=== PATIENT | male | born 1945 | race Caucasian/White ===

== ENCOUNTER 2016-06-15 07:59 | Outpatient (CLI) | payer OTHER | END 2016-06-15 08:00 | disposition home or self-care (01) | DX: E78.2 Mixed hyperlipidemia (principal); E29.1 Testicular hypofunction; Z79.899 Other long term (current) drug therapy; M79.1 Myalgia ==

== ENCOUNTER 2016-10-20 08:13 | Outpatient (CLI) | payer MEDICARE, OTHER ==
[2016-10-20 11:24] LABS: EOSINOPHILS # (AUTO) 0.1 10^3/uL (0.0-0.7); HCT - HEMATOCRIT 42.9 % (42.0-52.0); LYMPHOCYTES # (AUTO) 1.5 10^3/uL (1.5-3.5); MONOCYTES # (AUTO) 0.4 10^3/uL (0.0-1.0); NEUTROPHILS # (AUTO) 2.3 10^3/uL (1.5-6.6); NUCLEATED RED BLOOD CELLS AUTO 0.1 /100WBC; UNCORRECTED WHITE BLOOD COUNT 4.3 x10^3/uL; WHITE BLOOD COUNT 4.3 x10^3/uL (4.8-10.8)
[2016-10-20 11:26] LABS: BASOPHILS % (AUTO) 0.6 %; EOSINOPHILS % (AUTO) 2.6 %; HGB - HEMOGLOBIN 14.3 g/dL (14.0-18.0); LYMPHOCYTES % (AUTO) 34.6 %; MEAN CORPUSCULAR HGB CONC 33.4 g/dL (32.0-36.0); MEAN CORPUSCULAR VOLUME 89.8 fL (80.0-94.0); MEAN PLATELET VOLUME 7.9 fL (7.4-11.4); MONOCYTES % (AUTO) 8.7 %; NEUTROPHILS % (AUTO) 53.5 %; RED BLOOD COUNT 4.78 10^6/uL (4.70-6.10); RED CELL DISTRIBUTION WIDTH 14.4 % (12.0-15.0)
[2016-10-20 12:04] LABS: ALBUMIN/GLOBULIN RATIO 1.5 (1.0-2.2); BILIRUBIN,TOTAL 1.8 mg/dL (0.2-1.0); BUN - BLOOD UREA NITROGEN 24 mg/dL (6-20); CALCIUM 9.1 mg/dL (8.5-10.3); CARBON DIOXIDE - CO2 30 mmol/L (21-32); CHLORIDE 103 mmol/L (101-111); CHOL/HDL RATIO 4.9 (<5.0); CHOLESTEROL 196 mg/dL; CREATININE 1.1 mg/dL (0.6-1.2); GFR - MDRD 67 (>89); GLUCOSE 95 mg/dL (70-100); HDL CHOLESTEROL 40 mg/dL; LDL/HDL RATIO 3.1 (<3.6); SODIUM 138 mmol/L (135-145); TOTAL PROTEIN 6.9 g/dL (6.7-8.2); TRIGLYCERIDES 162 mg/dL; URIC ACID 5.1 mg/dL (2.6-7.2); VLDL CHOLESTEROL 32 mg/dL
== END 2016-10-20 08:14 | disposition home or self-care (01) ==
LOC: LAB.F 08:13
PROVIDERS: ATTEND Internal Medicine
DX: I63.9 Cerebral infarction, unspecified (principal); Z79.899 Other long term (current) drug therapy
CPT/HCPCS: 36415; 80053; 80061; 84443; 84550; 85025

== ENCOUNTER 2017-10-17 08:00 | Outpatient (CLI) | payer MEDICARE ==
[2017-10-17 12:54] LABS: BILIRUBIN,URINE NEGATIVE (NEGATIVE); GLUCOSE, URINE (UA) NEGATIVE (NEGATIVE); KETONES,URINE (UA) NEGATIVE (NEGATIVE); LEUKOCYTE ESTERASE, URINE NEGATIVE (NEGATIVE); NITRITE,URINE NEGATIVE (NEGATIVE); OCCULT BLOOD,URINE NEGATIVE (NEGATIVE); PROTEIN,URINE NEGATIVE (NEGATIVE); UROBILINOGEN,URINE 0.2 (NORMAL) E.U./dL (NORMAL)
[2017-10-17 12:57] LABS: CLARITY,URINE CLEAR (CLEAR)
[2017-10-17 12:59] LABS: BASOPHILS % (AUTO) 0.7 %; EOSINOPHILS % (AUTO) 0.8 %; HGB - HEMOGLOBIN 14.8 g/dL (14.0-18.0); LYMPHOCYTES # (AUTO) 1.1 10^3/uL (1.5-3.5); LYMPHOCYTES % (AUTO) 23.8 %; MEAN CORPUSCULAR HEMOGLOBIN 30.3 pg (27.0-31.0); MEAN CORPUSCULAR VOLUME 89.1 fL (80.0-94.0); MEAN PLATELET VOLUME 7.9 fL (7.4-11.4); MONOCYTES # (AUTO) 0.3 10^3/uL (0.0-1.0); MONOCYTES % (AUTO) 7.4 %; NEUTROPHILS # (AUTO) 3.1 10^3/uL (1.5-6.6); NEUTROPHILS % (AUTO) 67.3 %; PLT - PLATELET COUNT 195 10^3/uL (130-450); RED BLOOD COUNT 4.87 10^6/uL (4.70-6.10); RED CELL DISTRIBUTION WIDTH 14.5 % (12.0-15.0); WHITE BLOOD COUNT 4.6 x10^3/uL (4.8-10.8)
[2017-10-17 13:10] LABS: ALBUMIN 4.2 g/dL (3.2-5.5); ALBUMIN/GLOBULIN RATIO 1.4 (1.0-2.2); BILIRUBIN,TOTAL 1.4 mg/dL (0.2-1.0); CALCIUM 8.9 mg/dL (8.5-10.3); CREATININE 0.9 mg/dL (0.6-1.2); TOTAL PROTEIN 7.2 g/dL (6.7-8.2)
[2017-10-17 13:24] LABS: PT - PROTHROMBIN TIME 11.1 secs (9.9-12.6)
== END 2017-10-17 08:01 | disposition home or self-care (01) ==
LOC: LAB.R 08:00
PROVIDERS: ATTEND Internal Medicine
DX: Z01.812 Encounter for preprocedural laboratory examination (principal); I63.9 Cerebral infarction, unspecified; M17.9 Osteoarthritis of knee, unspecified; E78.5 Hyperlipidemia, unspecified
CPT/HCPCS: 80053; 81001; 81003; 85025; 85610; 87086

== ENCOUNTER 2019-08-26 09:12 | Emergency (ER) | payer MEDICARE, OTHER ==
--- NOTE | 2019-08-26 09:14 | ED Physician Documentation ---
PD HPI CHEST PAIN - Stated complaint Stated Complaint: CHEST PX - History obtained from History obtained from: Patient - History of Present Illness Timing - onset: How many hours ago (12), Last night, Yesterday (late dinner time.) Timing - onset during: Eating (soon after eating dinner heavy with garlic) Timing - duration: Hours (12) Timing - details: Abrupt onset, Still present, Waxing and waning Quality: Aching, Pain Location: Substernal, Epigastric Radiation: Back Improved by: No: ASA Worsened by: Palpation. No: Inspiration, Movement Associated symptoms: Nausea, General Weakness. No: Shortness of air, Vomiting, Feeling faint / dizzy, Palpitations Similar symptoms before: Has not had sx before Recently seen: Not recently seen Review of Systems Constitutional: denies: Fever, Chills Nose: denies: Rhinorrhea / runny nose, Congestion Throat: denies: Sore throat Respiratory: denies: Cough GI: reports: Nausea, Bloody / black stool (He is noticed dark-colored stool but still firm for the last 2 to 3 days and then a bit watery to loose dark stool without any vincent blood this morning.). denies: Vomiting, Diarrhea : denies: Dysuria, Frequency Musculoskeletal: denies: Extremity swelling Neurologic: reports: Generalized weakness. denies: Focal weakness, Numbness, Near syncope Endocrine: denies: Easy bruising / bleeding Immunocompromised: denies: Immunocompromised PD PAST MEDICAL HISTORY - Past Medical History Cardiovascular: Hypertension, High cholesterol Neuro: None Endocrine/Autoimmune: None GI: None Musculoskeletal: Gout - Past Surgical History Past Surgical History: Yes General: Other - Present Medications Home Medications: Ambulatory Orders Medication Instructions Recorded Confirmed Allopurinol [Zyloprim] 300 mg PO DAILY 11/01/15 11/01/15 Aspirin [Aspir-Low] 81 mg PO BIDAC 11/01/15 11/01/15 Rosuvastatin Calcium [Crestor] 10 mg PO Q48H 11/01/15 11/01/15 lisinopriL [Lisinopril] 5 mg PO DAILY 11/01/15 11/01/15 Famotidine 20 mg PO DAILY #30 tablet 08/26/19 Lidocaine Viscous 2% [Xylocaine 5 ml PO Q4H PRN #100 ml 08/26/19 Viscous 2%] Sucralfate 1 gm PO QID #20 tablet 08/26/19 - Allergies Allergies/Adverse Reactions: Allergies Allergy/AdvReac Type Severity Reaction Status Date / Time Penicillins Allergy Hives Verified 08/26/19 09:24 - Living Situation Living Situation: reports: With family Living Arrangement: reports: At home - Social History Does the pt smoke?: No Smoking Status: Never smoker Does the pt have substance abuse?: No - Family History Family history: reports: CAD - Immunizations Immunizations are current?: No Immunizations: TDAP >10years/unknown PD ED PE NORMAL - Vitals Vital signs reviewed: Yes - General General: Alert and oriented X 3, No acute distress, Well developed/nourished - HEENT HEENT: Moist mucous membranes, Pharynx benign - Neck Neck: Supple, no meningeal sign, No adenopathy - Cardiac Cardiac: RRR - Respiratory Respiratory: Clear bilaterally - Abdomen Abdomen: Normal bowel sounds, Soft, Non distended, No organomegaly, Other (Some tenderness in the epigastric area without any guarding or rebound.) - Rectal Rectal: Deferred (since he was able to provide stool sample in bathroom) - Derm Derm: Normal color, Warm and dry - Extremities Extremities: No deformity, No tenderness to palpate, No edema, No calf tenderness / cord - Neuro Neuro: Alert and oriented X 3, No motor deficit, Normal speech Results - Vitals Vitals: Vital Signs - 24 hr 08/26/19 08/26/19 08/26/19 09:19 11:04 11:39 Temperature 36.8 C Heart Rate 65 66 73 Respiratory 18 16 16 Rate Blood Pressure 157/98 H 116/86 H 115/78 O2 Saturation 100 98 97 Oxygen O2 Source Room air - EKG (time done) 09:16 Rate: Rate (enter#) (57) Rhythm: NSR [place]: Normal Intervals: Normal IA, RBBB QRS: Normal Ischemia: Normal ST segments, Non specific changes. No: ST elevation c/w ischemia Compare to prior EKG: Old EKG unavailable - Labs Labs: Laboratory Tests 08/26/19 08/26/19 08/26/19 09:30 09:30 09:30 WBC 7.5 RBC 4.04 L Hgb 11.7 L Hct 36.8 L MCV 91.1 MCH 29.0 MCHC 31.8 L RDW 13.1 Plt Count 175 MPV 9.6 Neut # (Auto) 5.5 Lymph # (Auto) 1.4 L [place] # (Auto) 0.4 Eos # (Auto) 0.0 Baso # (Auto) 0.1 Absolute Nucleated RBC 0.00 Nucleated RBC % 0.0 Sodium 138 Potassium 4.3 Chloride 104 Carbon Dioxide 27 Anion Gap 7.0 BUN 69 H Creatinine 1.0 Estimated GFR (MDRD) 74 L Glucose 116 H Calcium 8.6 Magnesium Total Bilirubin 1.0 AST 15 ALT 15 Alkaline Phosphatase 38 L Troponin I High Sens < 2.3 L Total Protein 6.6 L Albumin 3.8 Globulin 2.8 Albumin/Globulin Ratio 1.4 Lipase 30 Stl Occult Blood (IFOB) Blood Type Antibody Screen 08/26/19 08/26/19 08/26/19 09:30 09:30 10:30 WBC RBC Hgb Hct MCV MCH MCHC RDW Plt Count MPV Neut # (Auto) Lymph # (Auto) [place] # (Auto) Eos # (Auto) Baso # (Auto) Absolute Nucleated RBC Nucleated RBC % Sodium Potassium Chloride Carbon Dioxide Anion Gap BUN Creatinine Estimated GFR (MDRD) Glucose Calcium Magnesium 2.1 Total Bilirubin AST ALT Alkaline Phosphatase Troponin I High Sens Total Protein Albumin Globulin Albumin/Globulin Ratio Lipase Stl Occult Blood (IFOB) POSITIVE A Blood Type A POSITIVE Antibody Screen NEGATIVE - Rads (name of study) chest xray Radiology: Prelim report reviewed (normal chest xray), See rad report PD MEDICAL DECISION MAKING - ED course Complexity details: reviewed results (EKG showed a right bundle branch block which she states is a known finding in the past. Troponin is negative. Chest x-ray is clear. He was having dark stool and he gave a stool sample which was guaiac positive. He did have improvement in his pain with the GI cocktail. His blood pressure and blood count are normal so seems a stable upper GI bleed likely related to gastritis from NSAIDs.), re-evaluated patient (feeling improved with GI cocktail. ), considered differential, d/w patient Departure - Departure Disposition: 01 Home, Self Care Clinical Impression: Upper GI bleeding Chest pain Qualifiers: Chest pain type: precordial pain Qualified Code(s): R07.2 - Precordial pain Acute gastritis Qualifiers: Gastritis type: other gastritis Gastritis bleeding: with bleeding Qualified Code(s): K29.01 - Acute gastritis with bleeding Condition: Stable Record reviewed to determine appropriate education?: Yes Instructions: ED Bleed UGI Stable, ED PUD Vs Gastritis Follow-Up: Rossy Melgar, YANET [Primary Care Provider] - Prescriptions: Famotidine 20 mg PO DAILY #30 tablet Lidocaine Viscous 2% [Xylocaine Viscous 2%] 5 ml PO Q4H PRN #100 ml PRN Reason: Pain Sucralfate 1 gm PO QID #20 tablet Comments: Your stool did test positive for blood. Your symptoms would suggest a gastritis or ulcer but your blood count and blood pressure and such are good so we can treated as a bleeding gastritis with acid reducing medicine and medication to coat and numb the stomach. Avoid any NSAIDs for several weeks at least. Use Tylenol 650 mg 4 times a day for your back pain instead as this will not irritate your stomach. Bureau food for the next several days at least. Recheck if the pain is not improving well over the next several days and resolved over 3 to 5 days. The dark stools should phase out once the bleeding stops and I would expect that to resolve over 3 to 5 days as well. Follow-up with your primary care if the pain or dark stool persists beyond that timeframe. Return if significant increase in the amount of dark stool or any vincent blood shows. Your EKG chest x-ray and blood tests otherwise are normal without showing any signs of heart attack or heart injury. You do have a right bundle branch block still on your EKG and that will be a consistent finding for you. It does not represent significant heart disease. Discharge Date/Time: 08/26/19 11:40
[2019-08-26 09:39] LABS: BASOPHILS # (AUTO) 0.1 10^3/uL (0.0-0.1); BASOPHILS % (AUTO) 1.5 %; EOSINOPHILS % (AUTO) 0.4 %; HGB - HEMOGLOBIN 11.7 g/dL (14.0-18.0); LYMPHOCYTES # (AUTO) 1.4 10^3/uL (1.5-3.5); LYMPHOCYTES % (AUTO) 19.2 %; MEAN CORPUSCULAR HGB CONC 31.8 g/dL (32.0-36.0); MEAN CORPUSCULAR VOLUME 91.1 fL (80.0-94.0); MEAN PLATELET VOLUME 9.6 fL (7.4-11.4); MONOCYTES # (AUTO) 0.4 10^3/uL (0.0-1.0); MONOCYTES % (AUTO) 5.6 %; NEUTROPHILS # (AUTO) 5.5 10^3/uL (1.5-6.6); NEUTROPHILS % (AUTO) 72.6 %; PLT - PLATELET COUNT 175 10^3/uL (130-450); RED BLOOD COUNT 4.04 10^6/uL (4.70-6.10); RED CELL DISTRIBUTION WIDTH 13.1 % (12.0-15.0); WHITE BLOOD COUNT 7.5 x10^3/uL (4.8-10.8)
[2019-08-26 09:53] LABS: ALBUMIN 3.8 g/dL (3.2-5.5); ALBUMIN/GLOBULIN RATIO 1.4 (1.0-2.2); CALCIUM 8.6 mg/dL (8.5-10.3); TOTAL PROTEIN 6.6 g/dL (6.7-8.2)
[2019-08-26] MEDS ORDERED: MAG HYDROX/AL HYDROX/SIMETH 30 ML UDC PO STA (09:53)
[2019-08-26] MEDS ORDERED: FAMOTIDINE 20 MG/2 ML VIAL IVP STA (09:53)
[2019-08-26] MEDS ORDERED: LIDOCAINE VISCOUS 2% 15 ML UDC MM STA (09:53)
--- NOTE | 2019-08-26 09:54 | XRAY Report ---
Reason: Chest pain Procedure Date: 08/26/2019 Accession Number: [id number] / [id number] Procedure: XR - Chest 1 View X-Ray CPT Code: 29486 Final Report FULL RESULT: EXAM: CHEST RADIOGRAPHY EXAM DATE: 08/26/2019 09:47 AM. CLINICAL HISTORY: Chest pain for 12 hours after dinner. COMPARISON: None. TECHNIQUE: 1 view. FINDINGS: Lungs/Pleura: No focal opacities evident. No pleural effusion. No pneumothorax. Mediastinum: Within exam limitations, the cardiomediastinal contour is normal. Other: None. IMPRESSION: Normal single view chest. RADIA
[2019-08-26 11:40] VITALS: BP 115/78
== END 2019-08-26 11:40 | disposition home or self-care (01) ==
LOC: ED 09:12
DX: K29.01 Acute gastritis with bleeding (principal); R07.2 Precordial pain; I10 Essential (primary) hypertension
CPT/HCPCS: 36415; 71045; 80053; 82274; 83690; 83735; 84484; 85025; 86850; 86900; 86901; 93005; 96374; 99284; A9270; 82272

== ENCOUNTER 2020-05-02 16:36 | Outpatient (CLI) | payer MEDICARE, OTHER | END 2020-05-02 16:37 | disposition short-term general hospital (02) | LOC: EMS 16:36 | PROVIDERS: ATTEND Surgery | DX: R29.898 Other symptoms and signs involving the musculoskeletal system (principal) | CPT/HCPCS: A0425; A0429 ==

== ENCOUNTER 2020-06-09 09:57 | Outpatient (CLI) | payer MEDICARE, OTHER ==
--- NOTE | 2020-06-09 10:27 | SLEEP CARE CONSULTATION ---
Information from patient questionnaire entered by Angely Shields. I have reviewed and concur with the information entered by Angely Shields. This document represents the service I personally performed and the decisions made by me, Elbert Browning MD, [facility]. History of Present Illness Service Date and Time: 06/09/2020 0957 Reason for Visit: New patient Chief Complaint: reports: Other (post embolic stroke recommendation) Usual bedtime: 8:30-10:30 pm Time it takes to fall asleep: 5-10 mins Snores at night: Yes (perhaps some) Observed to quit breathing while asleep: No Sleeps alone due to snoring: No Reasons for waking at night: reports: Bathroom, Other (post surgical(hip replacement) discomfort) Toss, Turn, or Twitch while sleeping: Yes (sometimes) Recalls having dreams: Yes (sometimes) Usually gets out of bed at: 7-8 an Feels refreshed in the morning: Yes Morning headache: No Sleepy or fatigued during the day: No Ever fallen asleep while driving: No Takes day naps: Yes Dreams during day naps: No Prior sleep studies: No Additional HPI information: To minimize the risk of COVID-19 exposure, the patient has requested and consented to this video telemedicine visit. The patient also agrees to having his insurance billed. I had the pleasure of seeing Mr. Almonte today regarding the possibility of him having a sleep disorder. 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 He thinks his memory is still affected by it. He was recommended to have a sleep study to see if he has obstructive sleep apnea-hypopnea. According to the patient, he has never had any difficulty with sleep. He snores occasionally. He has never been witnessed to stop breathing at night. He does not wake up choking. Because of the surgery, he is waking up almost every hour. He is not sleepy during the day. He does complain of restless leg syndrome in the evening about 2 3 times a week. - Parasomnia Symptoms Ever been unable to move upon waking from sleep: No Ever felt weak in the knees when startled or emotional: No Bothered by creepy, crawly, restless sensations in legs: Yes (occasionally) Problems with memory or concentration: No Subjective Initial [place] Sleepiness Scale score: 5 (in 2020) Past Medical History Past Medical History: reports: Hypertension (mild), Stroke, Gout Social History The patient's occupation is a Retired. Patient is and [place] in [place]. Have you smoked in the past 12 months: No Alcohol use: Yes Alcohol amount and frequency: 1 glass per month (more recently) Caffeine use: No Family History Family history of sleep disordered breathing: No Allergies and Home Medications Known drug allergies: Yes (Penicillin) Home medication list reviewed: Yes (Eliquis, lisinopril, allopurinol) Review of Systems Cardiovascular: reports: high blood pressure Respiratory: denies: shortness of breath, wheeze, sputum production, chronic cough, other Gastrointestinal: denies: heartburn, difficulty swallowing, nausea, vomitting, diarrhea, abdominal pain, other Urinary: denies: incontinence, frequency, urgency, impotence, other Psychiatric: denies: Attention Deficit Hyperactivity, anxiety, depression, mood disorder, claustrophobia, other Ear/Nose/Throat: reports: tonsillectomy, wisdom teeth removed Endocrine: denies: thyroid disease, history of goiter, sluggishness, too hot or cold, excessive thirst, increased appetite, increased urination, unexplained weakness, other Immunologic: denies: sneezing, rash, itching, allergies to food or environment, other Physical Exam Vital signs obtained and entered by: Not available Height: 6 ft Weight: 198 lb Body Mass Index: 26.8 BMI Classification: Overweight Impression and Plan IMPRESSION: 1. Possible Obstructive Sleep Apnea-Hypopnea Syndrome, as suggested by occasional loud snore and history of stroke. Obstructive sleep apnea- hypopnea is a known predisposing factor for stroke and should be ruled out. I recommend proceeding to polysomnography for further evaluation. I informed the patient of what the sleep studies involve and after some discussion, he agreed to proceed. Plan: 1. Schedule polysomnography. 2. Avoid alcohol, sedative and muscle relaxant around bedtime. 3. Return for follow up after the sleep study. Patient Location: Home Location of Provider: Office Patient agrees and consents to this telehealth visit type: Yes Patient agrees to have their insurance billed: Yes Time Spent with Patient (minutes): 20
== END 2020-06-09 09:58 | disposition home or self-care (01) ==
LOC: SC 09:57
PROVIDERS: ATTEND Internal Medicine Pulmonary Disease
DX: R06.83 Snoring (principal); Z86.73 Personal history of transient ischemic attack (TIA), and cerebral infarction without residual deficits; E66.3 Overweight; Z68.26 Body mass index [BMI] 26.0-26.9, adult

== ENCOUNTER 2021-01-19 08:44 | Emergency (ER) | payer MEDICARE, OTHER ==
[2021-01-19 08:57] VITALS: BP 144/76
[2021-01-19 09:06] LABS: BILIRUBIN,URINE NEGATIVE (NEGATIVE); GLUCOSE, URINE (UA) NEGATIVE (NEGATIVE); KETONES,URINE (UA) NEGATIVE (NEGATIVE); LEUKOCYTE ESTERASE, URINE SMALL (NEGATIVE); NITRITE,URINE POSITIVE (NEGATIVE); OCCULT BLOOD,URINE MODERATE (NEGATIVE); PH,URINE 5.5 PH (5.0-7.5); PROTEIN,URINE TRACE mg/dL (NEGATIVE); UROBILINOGEN,URINE 0.2 (NORMAL) E.U./dL (NORMAL)
[2021-01-19 09:08] LABS: CLARITY,URINE CLOUDY (CLEAR)
[2021-01-19 09:18] LABS: BACTERIA,URINE Many /HPF (None Seen); RBC,URINE 0-5 /HPF (0-5); SQUAMOUS EPITHELIAL CELL,UR RARE Squamous (<= Few); WBC CLUMPS,URINE PRESENT; WBC,URINE >25 /HPF (0-3)
--- NOTE | 2021-01-19 09:18 | ED Physician Documentation ---
PD HPI MALE - Stated complaint Stated Complaint: MALE - Chief complaint Chief Complaint: UTI - History obtained from History obtained from: Patient - History of Present Illness Timing - onset: How many days ago (2) Timing - duration: Days (2) Timing - details: Gradual onset, Still present Associated symptoms: Dysuria, Urinary frequency. No: Discharge, Scrotal swelling PD HPI MALE CONTRIB FACTORS: No: Exposed to STD Similar symptoms before: Has not had sx before Review of Systems Constitutional: denies: Fever, Chills Nose: denies: Rhinorrhea / runny nose, Congestion Throat: denies: Sore throat Respiratory: denies: Cough GI: denies: Abdominal Pain, Nausea, Vomiting, Diarrhea : reports: Dysuria, Frequency. denies: Hematuria Skin: denies: Rash PD PAST MEDICAL HISTORY - Past Medical History Past Medical History: Yes Cardiovascular: Hypertension, High cholesterol, Deep vein thrombosis Respiratory: None Neuro: TIA Endocrine/Autoimmune: None GI: None : None HEENT: None Psych: None Musculoskeletal: Gout Derm: None - Past Surgical History Past Surgical History: Yes General: Other Ortho: Knee replacement HEENT: Tonsil/Adenoidectomy - Present Medications Home Medications: Ambulatory Orders Medication Instructions Recorded Confirmed Allopurinol [Zyloprim] 300 mg PO DAILY 11/01/15 01/19/21 lisinopriL [Lisinopril] 5 mg PO DAILY 11/01/15 01/19/21 Apixaban [Eliquis] 5 mg ORAL BID 01/19/21 01/19/21 Cholecalciferol (Vitamin D3) 25 mcg PO DAILY 01/19/21 01/19/21 [Vitamin D3] Phenazopyridine HCl [Pyridium] 200 mg PO TID PRN #6 tablet 01/19/21 Sulfamethox/Trimeth 800/160 1 each PO BID #10 tablet 01/19/21 [Bactrim Ds 800/160] - Allergies Allergies/Adverse Reactions: Allergies Allergy/AdvReac Type Severity Reaction Status Date / Time Penicillins Allergy Hives Verified 01/19/21 08:54 - Social History Does the pt smoke?: No Smoking Status: Never smoker Does the pt drink ETOH?: No Does the pt have substance abuse?: No - Immunizations Immunizations are current?: No Immunizations: TDAP >10years/unknown PD ED PE NORMAL - Vitals Vital signs reviewed: Yes - General General: Alert and oriented X 3, No acute distress, Well developed/nourished - Abdomen Abdomen: Soft, Non tender, Non distended - Male Male : Deferred - Back Back: No CVA TTP - Derm Derm: Normal color, Warm and dry Results - Vitals Vitals: Vital Signs - 24 hr 01/19/21 08:54 Temperature 36.9 C Heart Rate 66 Respiratory 18 Rate Blood Pressure 144/76 H O2 Saturation 100 Oxygen O2 Source Room air - Labs Labs: Laboratory Tests 01/19/21 09:00 Urine Color YELLOW Urine Clarity CLOUDY Urine pH 5.5 Ur Specific [place] 1.025 Urine Protein TRACE Urine Glucose (UA) NEGATIVE Urine Ketones NEGATIVE Urine Occult Blood MODERATE H Urine Nitrite POSITIVE H Urine Bilirubin NEGATIVE Urine Urobilinogen 0.2 (NORMAL) Ur Leukocyte Esterase SMALL H Urine RBC 0-5 Urine WBC >25 H Urine WBC Clumps PRESENT Ur Squamous Epith Cells RARE Squamous Urine Bacteria Many H Ur Microscopic Review INDICATED Urine Culture Comments INDICATED PD MEDICAL DECISION MAKING - ED course Complexity details: considered differential (symptoms and UA c/w UTI. ), d/w patient Departure - Departure Disposition: Home, Self Care Clinical Impression: Dysuria UTI (urinary tract infection) Qualifiers: Urinary tract infection type: acute cystitis Hematuria presence: without hematuria Qualified Code(s): N30.00 - Acute cystitis without hematuria Condition: Stable Record reviewed to determine appropriate education?: Yes Instructions: ED UTI Cystitis Male Follow-Up: Rossy Melgar ARNP [Primary Care Provider] - Prescriptions: Sulfamethox/Trimeth 800/160 [Bactrim Ds 800/160] 1 each PO BID #10 tablet Phenazopyridine HCl [Pyridium] 200 mg PO TID PRN #6 tablet PRN Reason: dysuria Comments: Your urine does show signs of infection. This would account for your symptoms. Stay well-hydrated but no need to over hydrate per se. Tylenol if needed for discomfort. Phenazopyridine 3 times daily for the next couple of days to help reduce symptoms. This will numb the inside of the bladder and urethra on decrease discomfort. Able to new urine little orange-colored as well. Bactrim antibiotic twice daily for 5 days. This is for the infection. I would anticipate improvement over the next 2 to 3 days and resolved by 3-5. Recheck if not improved in that timeframe. Return if worse symptoms, fevers, back pain, vomiting or other concerns. Bladder infections sometimes does cause mild bleeding in the urine. If this happens, not to worry if it is just a small amount in the next day or 2 while this is resolving. I transmitted the prescriptions to Joe Miranda in [place]. Discharge Date/Time: 01/19/21 10:10
[2021-01-19] MEDS ORDERED: PHENAZOPYRIDINE 100 MG TABLET PO STA (09:29)
[2021-01-19] MEDS ORDERED: SULFAMETH/TRIMETH DS 800/160 MG TABLET PO STA (09:29)
== END 2021-01-19 10:10 | disposition home or self-care (01) ==
LOC: ED 08:44
DX: N30.00 Acute cystitis without hematuria (principal); I10 Essential (primary) hypertension; Z86.718 Personal history of other venous thrombosis and embolism; Z79.01 Long term (current) use of anticoagulants
CPT/HCPCS: 81001; 87077; 87086; 87181; 99283; A9270; 81003

== ENCOUNTER 2021-02-25 07:12 | Outpatient (CLI) | payer MEDICARE, OTHER ==
[2021-02-25] MEDS ORDERED: IOVERSOL 320 100 ML VIAL IVP ONE ×2 (07:19→09:17)
[2021-02-25] MEDS ORDERED: IOVERSOL 320 50 ML VIAL ONE (07:19)
[2021-02-25] MEDS ORDERED: IOVERSOL 320 50 ML VIAL PO ONE (09:17)
--- NOTE | 2021-02-25 10:37 | CT Report ---
PROCEDURE: Abdomen/Pelvis W INDICATIONS: RIGHT INGUINAL PAIN CONTRAST: IV CONTRAST: Optiray 320 ml: 100 PO CONTRAST: Optiray 320 ml50 TECHNIQUE: After the administration of oral and IV contrast, 5 mm thick sections acquired from the diaphragms to the symphysis. 5 mm thick coronal and sagittal reformats were acquired. For radiation dose reducti on, the following was used: automated exposure control, adjustment of mA and/or kV according to eyal ent size. COMPARISON: None. FINDINGS: Inferior chest: No focal consolidation, pleural effusion, or pneumothorax. Cardiomegaly without sign ificant pericardial effusion. Gallbladder: The gallbladder is distended with a smooth thin wall. Biliary tree: No intra-or extrahepatic biliary ductal dilatation. Liver: The liver demonstrates normal enhancement, size, and contour. 1.1 cm hypoattenuating lesion in right hepatic lobe, which may reflect a cyst. Spleen: Normal enhancement, size and morphology is seen. Pancreas: Normal morphology without masses or inflammatory changes. Adrenals: Normal size without masses. Kidneys/ureters: Normal size and morphology. No solid masses or hydronephrosis. Vasculature: No evidence of aneurysm or other significant vascular pathology. Lymphatic system: No pathologic enlargement by size criteria. GI/mesentery: No evidence of intestinal obstruction. Wall thickening/fullness is seen in the cecum, w hich is nonspecific. The appendix is not clearly delineated. Peritoneum/Retroperitoneum: No free intraperitoneal gas or large collection. Urinary bladder: The urinary bladder is distended with a smooth thin wall. Pelvic organs: Enlargement of the prostate and seminal vesicles. Bones/soft tissues: No significant abnormality. Multifocal degenerative change. IMPRESSION: 1.Cecal wall thickening/fullness, which may be secondary to underdistention. Consider correlation mos t recent colonoscopy. Reviewed by: Will Ambrose MD on 02/25/2021 10:36 AM PDT Approved by: Will Ambrose MD on 02/25/2021 10:36 AM PDT Station ID: [id number]
== END 2021-02-25 07:13 | disposition home or self-care (01) ==
LOC: DI 07:12
PROVIDERS: ATTEND Registered Nurse
DX: R10.31 Right lower quadrant pain (principal); R93.3 Abnormal findings on diagnostic imaging of other parts of digestive tract
CPT/HCPCS: 74177; Q9967

== ENCOUNTER 2021-05-27 07:59 | Day surgery (SDC) | payer MEDICARE, OTHER ==
[2021-05-27] MEDS ORDERED: LACTATED RINGERS 1,000 ML IV ONE ×2 (08:17→09:56)
[2021-05-27] MEDS ORDERED: PROPOFOL 500 MG/50 ML 500 MG/50 ML VIAL ONE (09:00)
[2021-05-27] MEDS ORDERED: MIDAZOLAM 2 MG/2 ML VIAL ONE (09:00)
[2021-05-27] MEDS ORDERED: fentaNYL 100 MCG/2 ML VIAL ONE (09:00)
--- NOTE | 2021-05-27 09:12 | ANESTHESIA ---
Pre-Anesthesia VS, & Labs - Diagnosis positive cologuard - Procedure colonoscopy Vital Signs: Temp Pulse Resp BP Pulse Ox 36.6 C 65 12 151/87 H 98 05/27/21 08:11 05/27/21 08:11 05/27/21 08:11 05/27/21 08:11 05/27/21 08:11 Height: 6 ft 2 in Weight (kg): 90 kg Body Mass Index: 25.4 BMI Classification: Overweight - NPO >8 hours Home Medications and Allergies Home Medications: Ambulatory Orders Aspirin [Aspirin EC] 81 mg PO DAILY 05/25/21 Allopurinol [Zyloprim] 300 mg PO DAILY 11/01/15 lisinopriL [Lisinopril] 5 mg PO DAILY 11/01/15 Cholecalciferol (Vitamin D3) [Vitamin D3] 25 mcg PO DAILY 01/19/21 Aspirin [Aspirin EC] 81 mg PO DAILY 05/25/21 Allergies/Adverse Reactions: Allergies Allergy/AdvReac Type Severity Reaction Status Date / Time Penicillins Allergy Hives Verified 01/19/21 08:54 Anes History & Medical History - Anesthetic History Anesthesia Complications: reports: No previous complications - Medical History Cardiovascular: reports: Hypertension, High cholesterol, Deep vein thrombosis, Other (PFO closure) Pulmonary: reports: None Gastrointestinal: reports: None Urinary: reports: None Neuro: reports: TIA Musculoskeletal: reports: Gout Endocrine/Autoimmune: reports: None Blood Disorders: reports: None Skin: reports: Other Smoking Status: Never smoker Psychosocial: reports: No issues indicated History of Cancer?: No - Surgical History General: reports: Other Eyes Ears Nose Throat (EENT): reports: Tonsil/Adenoidectomy Orthopedic: reports: Hip replacement, Knee replacement Exam General: Alert, Oriented x3, Cooperative, No acute distress Dental: WNL Mouth Openin Fingerbreadth Neck Mobility: Normal Mallampati classification: II Thyromental Distance: 4-6 cm Mental/Cognitive Status: Alert/Oriented X3, Normal for patient Plan Anesthesia Type: General, Total IV Consent for Procedure(s) Verified and Reviewed: Yes Code Status: Attempt Resuscitation ASA classification: 2-Mild systemic disease Is this case an emergency?: No
[2021-05-27] MEDS ORDERED: GLYCOPYRROLATE 1 MG/5 ML VIAL ONE (09:48)
--- NOTE | 2021-05-27 10:01 | ANESTHESIA POST OP EVALUATION ---
Anesthesia Post Eval - Post Anesthesia Eval Vitals: Last Vital Signs Temp 36.4 C L 05/27/21 09:56 Pulse 55 L 05/27/21 09:56 Resp 13 05/27/21 09:56 BP 97/57 L 05/27/21 09:56 Pulse Ox 95 05/27/21 09:56 CV Function Including HR & BP: Stable Pain Control: Satisfactory Nausea & Vomiting: Negative Mental Status: Baseline Respiratory Status: Airway Patent Hydration Status: Satisfactory Anesthesia Complications: None
[2021-05-27 10:22] VITALS: BP 117/74
== END 2021-05-27 08:00 | disposition home or self-care (01) ==
LOC: SDS 07:59
PROVIDERS: ATTEND Surgery
DX: R19.5 Other fecal abnormalities (principal); R10.31 Right lower quadrant pain; K64.8 Other hemorrhoids; Z86.718 Personal history of other venous thrombosis and embolism
CPT/HCPCS: 45378; J7120

== ENCOUNTER 2021-10-08 13:09 | Outpatient (CLI) | payer MEDICARE, OTHER | END 2021-10-08 13:10 | disposition home or self-care (01) | LOC: DI 13:09 | PROVIDERS: ATTEND Internal Medicine Cardiovascular Disease | DX: Z87.74 Personal history of (corrected) congenital malformations of heart and circulatory system (principal); I51.7 Cardiomegaly; I77.810 Thoracic aortic ectasia; I35.1 Nonrheumatic aortic (valve) insufficiency | CPT/HCPCS: 93306 ==

== ENCOUNTER 2024-01-05 16:05 | Outpatient (CLI) | payer MEDICARE, OTHER | END 2024-01-05 23:59 | disposition critical access hospital (66) | LOC: EMS 16:05 | DX: T63.441A Toxic effect of venom of bees, accidental (unintentional), initial encounter (principal); L50.0 Allergic urticaria; R60.0 Localized edema | CPT/HCPCS: A0425; A0429 ==

== ENCOUNTER 2024-01-05 16:39 | Emergency (ER) | payer MEDICARE, OTHER ==
--- NOTE | 2024-01-05 16:50 | ED Physician Documentation ---
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 He was stung several times today, 1 on the upper lip, few on the chest and developed diffuse rash and upper lip swelling. He was seen at the walk-in clinic and administered epinephrine, dexamethasone, and Benadryl but referred here for observation. He is feeling much better now. Of note the patient tells me the walk-in clinic already prescribed him EpiPen's. PD PAST MEDICAL HISTORY - Past Medical History Cardiovascular: Hypertension, High cholesterol, Deep vein thrombosis, Other (PFO closure) Respiratory: None Neuro: TIA Endocrine/Autoimmune: None GI: None : None HEENT: None Psych: None Musculoskeletal: Gout Derm: None - Past Surgical History Past Surgical History: Yes General: Other Ortho: Knee replacement HEENT: Tonsil/Adenoidectomy - Present Medications Home Medications: Ambulatory Orders Medication Instructions Recorded Confirmed Allopurinol [Zyloprim] 300 mg PO DAILY 11/01/15 05/27/21 lisinopriL [Lisinopril] 5 mg PO DAILY 11/01/15 05/27/21 Cholecalciferol (Vitamin D3) 25 mcg PO DAILY 01/19/21 05/27/21 [Vitamin D3] Aspirin [Aspirin EC] 81 mg PO DAILY 05/25/21 05/27/21 - Allergies Allergies/Adverse Reactions: Allergies Allergy/AdvReac Type Severity Reaction Status Date / Time Penicillins Allergy Hives Verified 01/05/24 16:50 - Social History Does the pt smoke?: No Smoking Status: Never smoker Does the pt drink ETOH?: No Does the pt have substance abuse?: No - Immunizations Immunizations are current?: No Immunizations: TDAP >10years/unknown PD ED PE NORMAL - Vitals Vital signs reviewed: Yes - General General: Alert and oriented X 3, No acute distress - HEENT HEENT: Other (There is edema of the upper lip, but that is where he was stung 1 time.) - Neck Neck: Supple, no meningeal sign, No bony TTP - Cardiac Cardiac: RRR, No murmur - Respiratory Respiratory: No respiratory distress, Clear bilaterally - Abdomen Abdomen: Non tender - Derm Derm: Other (Mild erythema of both arms) - Neuro Neuro: Alert and oriented X 3 Results - Vitals Vitals: Vital Signs - 24 hr 01/05/24 01/05/24 16:46 17:42 Temperature 36.7 C Heart Rate 68 63 Respiratory 17 15 Rate Blood Pressure 152/88 H 135/79 H O2 Saturation 97 97 Oxygen O2 Source Room air PD Medical Decision Making - ED course ED course: 78-year-old gentleman with mild anaphylaxis related to bee sting with appropriate prehospital treatment now here for observation. He is improving. He was observed for several hours after his epinephrine with improvement of his symptomatology and requesting discharge. He already got prescribed EpiPen's by the walk-in clinic. Departure - Departure Disposition: 01 Home, Self Care Clinical Impression: Anaphylaxis Qualifiers: Encounter type: initial encounter Qualified Code(s): T78.2XXA - Anaphylactic shock, unspecified, initial encounter Condition: Good Record reviewed to determine appropriate education?: Yes Instructions: ED Anaphylaxis General Comments: Make sure you fill the EpiPen's that the walk-in clinic prescribed. Call your doctor to arrange a follow-up appointment, make the next available appointment. In the interim, return anytime if worse or if new symptoms develop. Forms: PCP List Discharge Date/Time: 01/05/24 17:42
[2024-01-05 17:05] VITALS: O2SAT 97
[2024-01-05 17:43] VITALS: BP 135/79
== END 2024-01-05 17:42 | disposition home or self-care (01) ==
LOC: EDUNIT# → ED 16:39
DX: T63.441A Toxic effect of venom of bees, accidental (unintentional), initial encounter (principal); T78.2XXA Anaphylactic shock, unspecified, initial encounter; R21 Rash and other nonspecific skin eruption; R22.0 Localized swelling, mass and lump, head
CPT/HCPCS: 99283; 99284